=== PATIENT | female | born 1945 | race Hispanic/Latino ===

== ENCOUNTER 2018-05-06 08:08 | Inpatient (IN) | payer MEDICARE ==
[2018-05-06 08:55] LABS: Basophils # (Auto) 0.1 K/mm3 (0.0-0.1); Basophils % (Auto) 0.6 % (0.0-1.8); Eosinophils % (Auto) 0.4 % (0.0-4.3); Hematocrit 40.6 % (30.3-42.9); Hemoglobin 13.7 gm/dl (10.1-14.3); Lymphocytes % (Auto) 21.5 % (13.4-35.0); Mean Corpuscular HGB Conc 34 % (30-34); Mean Corpuscular Volume 92 fl (79-97); Monocytes # (Auto) 0.6 K/mm3 (0.0-0.8); Monocytes % (Auto) 6.1 % (0.0-7.3); Platelet Count 290 K/mm3 (140-440); Red Blood Count 4.42 M/mm3 (3.65-5.03); Red Cell Distribution Width 16.3 % (13.2-15.2)
--- NOTE | 2018-05-06 09:14 | XRay Report ---
AP CHEST: HISTORY: Shortness of breath No comparison. There is poor visualization of the left hemidiaphragm suggesting left basilar atelectasis or small left pleural effusion. The lungs are clear otherwise. Normal heart size and pulmonary vessels. The bony structures are grossly intact. Degenerative changes are noted at both shoulders. IMPRESSION: Left basilar atelectasis versus small left pleural effusion.
[2018-05-06 09:24] LABS: BUN/Creatinine Ratio 26; Blood Urea Nitrogen 18 mg/dL (7-17); Calcium 9.4 mg/dL (8.4-10.2); Hemolysis Index 19
[2018-05-06] MEDS ORDERED: ATROVENT IH ONE (10:40)
[2018-05-06] MEDS ORDERED: PROVENTIL IH ONE (10:40)
--- NOTE | 2018-05-06 11:19 | Emergency Department Report ---
ED Shortness of Breath HPI - General Chief Complaint: Dyspnea/Respdistress Stated Complaint: WEAKNESS/WHEEZING Time Seen by Provider: 05/06/18 10:15 Source: patient Mode of arrival: Stretcher Limitations: Physical Limitation - History of Present Illness Initial Comments: 72-year-old female with history of hypertension, hypothyroidism presents with shortness of breath 5 days. Patient states she is mostly immobile at home. She gets around somewhat in a wheelchair. The patient states that is becoming increasingly harder to do. Patient states she sleeps in her recliner with her legs elevated. Patient states she has been off of her diuretic, Synthroid, blood pressure medication for a few months. Patient reports increased swelling in bilateral lower extremities over the last 2 months. Today, pt called EMS for chest pain, wheezing, shortness of breath. MD Complaint: shortness of breath -: days(s) (5) Severity: moderate Consistency: intermittent Improves With: rest Worsens With: exertion, movement Associated Symptoms: chest pain, lower extremity pain - Related Data Home Oxygen Therapy: No Home Medications Medication Instructions Recorded Confirmed Last Taken Lisinopril [Zestril TAB] 20 mg PO QDAY 12/05/12 05/06/18 01/08/13 05:00 PARoxetine [Paxil] 10 mg PO DAILY 12/05/12 05/06/18 01/07/13 21:00 Chlorthalidone [Thalitone] 25 mg PO QDAY 05/06/18 05/06/18 Unknown Levothyroxine Sodium [Synthroid] 200 mcg PO QDAY 05/06/18 05/06/18 Unknown Allergies Allergy/AdvReac Type Severity Reaction Status Date / Time adhesive Allergy Rash Verified 01/08/13 06:27 benzene [Benzene] Allergy Rash Verified 01/08/13 06:27 iodine Allergy Rash Verified 01/08/13 06:27 Penicillins Allergy Unknown Verified 01/08/13 06:27 Muoktnn-Fhk-Zqo Reductase Allergy Unknown Verified 01/08/13 06:27 Inhibitor pentazocine lactate AdvReac Severe Unknown Verified 01/08/13 06:27 [From Talwin] celecoxib [From Celebrex] AdvReac Unknown Verified 01/08/13 06:27 rofecoxib [From Vioxx] AdvReac Unknown Verified 01/08/13 06:27 ED Review of Systems ROS: Stated complaint: WEAKNESS/WHEEZING Other details as noted in HPI Comment: All other systems reviewed and negative Constitutional: denies: chills, fever Respiratory: shortness of breath, wheezing Cardiovascular: chest pain Musculoskeletal: other (reports lower extremity swelling and pain) ED Past Medical Hx - Past Medical History Hx Hypertension: Yes Hx GERD: Yes Hx Arthritis: Yes (RIGHT KNEE) Hx Asthma: Yes (in cold weather) - Surgical History Hx Breast Surgery: Yes (BILATERAL BREAST BIOPSY) - Social History Smoking Status: Never Smoker Substance Use Type: None - Medications Home Medications: Home Medications Medication Instructions Recorded Confirmed Last Taken Type Lisinopril [Zestril TAB] 20 mg PO QDAY 12/05/12 05/06/18 01/08/13 05:00 History PARoxetine [Paxil] 10 mg PO DAILY 12/05/12 05/06/18 01/07/13 21:00 History Chlorthalidone [Thalitone] 25 mg PO QDAY 05/06/18 05/06/18 Unknown History Levothyroxine Sodium [Synthroid] 200 mcg PO QDAY 05/06/18 05/06/18 Unknown History ED Physical Exam - General Limitations: Physical Limitation General appearance: alert, in no apparent distress, obese - Head Head exam: Present: atraumatic, normocephalic - Eye Eye exam: Present: normal appearance - ENT ENT exam: Present: mucous membranes moist - Neck Neck exam: Present: normal inspection - Respiratory Respiratory exam: Present: wheezes - Cardiovascular Cardiovascular Exam: Present: tachycardia, irregular rhythm - GI/Abdominal GI/Abdominal exam: Present: soft. Absent: distended, tenderness - Extremities Exam Extremities exam: Present: other (2+ edema bilateral lower extremities) - Neurological Exam Neurological exam: Present: alert, oriented X3 - Psychiatric Psychiatric exam: Present: normal affect, normal mood ED Course Vital Signs 05/06/18 05/06/18 05/06/18 08:22 08:48 09:00 Temperature 97.9 F Pulse Rate 120 H 100 H 114 H Pulse Rate [ Bilateral] Respiratory 13 25 H Rate Respiratory Rate [Bilateral ] Blood Pressure 144/90 121/79 O2 Sat by Pulse 99 100 98 Oximetry 05/06/18 05/06/18 05/06/18 09:16 09:29 09:30 Temperature Pulse Rate 100 H 92 H Pulse Rate [ Bilateral] Respiratory 20 18 Rate Respiratory Rate [Bilateral ] Blood Pressure 111/81 111/81 O2 Sat by Pulse 99 98 100 Oximetry 05/06/18 05/06/18 05/06/18 09:45 10:00 10:15 Temperature Pulse Rate 105 H 103 H 89 Pulse Rate [ Bilateral] Respiratory 23 24 25 H Rate Respiratory Rate [Bilateral ] Blood Pressure 138/67 135/73 147/81 O2 Sat by Pulse 99 99 99 Oximetry 05/06/18 05/06/18 05/06/18 10:30 11:00 11:09 Temperature Pulse Rate 92 H 103 H Pulse Rate [ 95 H Bilateral] Respiratory 18 17 Rate Respiratory 25 H Rate [Bilateral ] Blood Pressure 130/76 140/80 O2 Sat by Pulse 100 98 Oximetry 05/06/18 05/06/18 05/06/18 11:16 11:30 11:46 Temperature Pulse Rate 97 H 111 H 108 H Pulse Rate [ Bilateral] Respiratory 19 26 H 25 H Rate Respiratory Rate [Bilateral ] Blood Pressure 166/85 183/90 158/94 O2 Sat by Pulse 99 97 100 Oximetry 05/06/18 05/06/18 05/06/18 12:00 12:15 12:30 Temperature Pulse Rate 109 H 100 H 100 H Pulse Rate [ Bilateral] Respiratory 30 H 24 26 H Rate Respiratory Rate [Bilateral ] Blood Pressure 160/96 163/88 152/95 O2 Sat by Pulse 99 98 99 Oximetry ED Medical Decision Making - Lab Data Result diagrams: 05/06/18 08:37 05/06/18 08:43 - EKG Data -: EKG Interpreted by [place] EKG shows normal: axis, QRS complexes, ST-T waves Rate: tachycardia (rate = 101) - EKG Data Interpretation: other (atrial fibrillation) - Radiology Data Radiology results: report reviewed, image reviewed - Medical Decision Making 72-year-old female with increasing shortness of breath over the last 5 days. The patient with wheezing on exam, pleural effusion on chest x-ray. Patient with severe swelling in bilateral lower extremities, however, D-dimer was negative. EKG shows a sharp fibrillation, rate controlled. Patient denies history of A. fib in the past. Appears to be new onset. Troponin negative. Patient admiited to hospitalist, Dr Lopez. - Differential Diagnosis pneumonia, PE, ACS Critical care attestation.: If time is entered above; I have spent that time in minutes in the direct care of this critically ill patient, excluding procedure time. ED Disposition Clinical Impression: New onset atrial fibrillation, Pleural effusion Disposition: OP ADMIT IP TO THIS HOSP Is pt being admited?: Yes Condition: Stable
--- NOTE | 2018-05-06 12:12 | History and Physical Report ---
History of Present Illness Chief complaint: Im weak, I cant breathe History of present illness: 72 YO Female with HTN, GERD, Hypothyroidism, OA, MO, Asthma presents to ED for evaluation. Pt states that she has experienced shortness of breath over the past 2 months with worsening symptoms over the past 5 days. Pt acknowledges decreased exercise tolerance, leg edema, Orthopnea/PND, and inability to independently conduct activities of daily living. Pt acknowledges medication noncompliance over the past 1 week as well ad noncompliance with low sodium diet. EMS notified, and upon arrival the patient was found to be in respiratory distress. Pt transported to [facility] for further care and evaluation. Pt seen and evaluated in ED and found to have findings consistent with CHF, Obesity Hypoventilation Syndrome. Pt admitted to telemetry and initiated on CHF protocol. Cardiology team consulted in ED. Past History Past Medical History: GERD, hypertension, other (Obesity) Past Surgical History: Other (Bilateral Breast) Social history: . denies: smoking, alcohol abuse, prescription drug abuse Family history: hypertension Medications and Allergies Allergies Allergy/AdvReac Type Severity Reaction Status Date / Time adhesive Allergy Rash Verified 01/08/13 06:27 benzene [Benzene] Allergy Rash Verified 01/08/13 06:27 iodine Allergy Rash Verified 01/08/13 06:27 Penicillins Allergy Unknown Verified 01/08/13 06:27 Zqhpuem-[id number]-Dxm Reductase Allergy Unknown Verified 01/08/13 06:27 Inhibitor pentazocine lactate AdvReac Severe Unknown Verified 01/08/13 06:27 [From Talwin] celecoxib [From Celebrex] AdvReac Unknown Verified 01/08/13 06:27 rofecoxib [From Vioxx] AdvReac Unknown Verified 01/08/13 06:27 Home Medications Medication Instructions Recorded Confirmed Last Taken Type Lisinopril [Zestril TAB] 20 mg PO QDAY 12/05/12 05/06/18 01/08/13 05:00 History PARoxetine [Paxil] 10 mg PO DAILY 12/05/12 05/06/18 01/07/13 21:00 History Chlorthalidone [Thalitone] 25 mg PO QDAY 05/06/18 05/06/18 Unknown History Levothyroxine Sodium [Synthroid] 200 mcg PO QDAY 05/06/18 05/06/18 Unknown History Review of Systems Constitutional: no weight loss, no weight gain, no fever, no chills Ears, nose, mouth and throat: no ear pain, no ear discharge, no tinnitis, no decreased hearing, no nose pain, no nasal congestion Cardiovascular: orthopnea, shortness of breath, dyspnea on exertion, paroxysmal nocturnal dyspnea, high blood pressure, leg edema, decreased exercise tolerance, no palpitations, no rapid/irregular heart beat, no edema, no syncope Respiratory: no cough, no cough with sputum, no excessive sputum, no hemoptysis Gastrointestinal: no abdominal pain, no nausea, no vomiting, no diarrhea Genitourinary Female: no pelvic pain, no flank pain, no menorrhagia, no dysuria Rectal: no pain, no incontinence, no bleeding Musculoskeletal: no neck stiffness, no neck pain, no shooting arm pain, no arm numbness/tingling, no low back pain, no shooting leg pain Integumentary: no rash, no pruritis, no redness, no sores, no wounds Neurological: no transient paralysis, no paralysis, no weakness, no parathesias, no numbness, no tingling, no seizures Psychiatric: no anxiety, no memory loss, no change in sleep habits, no sleep disturbances, no insomnia, no hypersomnia Endocrine: no cold intolerance, no heat intolerance, no polyphagia, no excessive thirst, no polydipsia, no polyuria Hematologic/Lymphatic: no easy bruising, no easy bleeding, no lymphadenopathy, no lymphedema Allergic/Immunologic: no urticaria, no allergic rhinitis, no wheezing, no persistent infections, no anaphylaxis, no angioedema Exam - Constitutional Vitals: Temp Pulse Resp BP Pulse Ox 97.9 F 95 H 25 H 130/76 100 05/06/18 08:22 05/06/18 11:09 05/06/18 11:09 05/06/18 10:30 05/06/18 10:30 General appearance: Present: mild distress, obese - EENT Eyes: Present: PERRL ENT: hearing intact, clear oral mucosa - Neck Neck: Present: supple, normal ROM - Respiratory Respiratory effort: labored Respiratory: bilateral: diminished, rhonchi - Cardiovascular Heart Sounds: Present: S1 & S2. Absent: rub, click - Extremities Extremities: pulses symmetrical Extremity abnormal: edema Peripheral Pulses: within normal limits - Abdominal General gastrointestinal: Present: soft, non-tender, non-distended, normal bowel sounds Female genitourinary: Present: normal - Musculoskeletal Musculoskeletal: generalized weakness - Psychiatric Psychiatric: appropriate mood/affect, intact judgment & insight - Neurologic Neurologic: CNII-XII intact, moves all extremities, no gait normal Results - Labs CBC & Chem 7: 05/06/18 08:37 05/06/18 08:43 Labs: Abnormal lab results 05/06/18 05/06/18 Range/Units 08:37 08:43 RDW 16.3 H (13.2-15.2) % Seg Neutrophils % 71.4 H (40.0-70.0) % BUN 18 H (7-17) mg/dL Glucose 150 H (65-100) mg/dL Assessment and Plan - Patient Problems (1) CHF (congestive heart failure) Current Visit: Yes Status: Suspected Qualifiers: Heart failure type: combined systolic and diastolic Plan to address problem: Admit to Telemetry, Cardiology consulted in ED, CHF protocol initiated: Strict I/O, daily weight, monitor uop q shift, Echo, BNP, D dimer, chest x ray, (2) Obesity hypoventilation syndrome Current Visit: Yes Status: Acute Plan to address problem: Supplemental oxygen, Nebulizer therapy, NIPPV as clinically indicated, pulse oximetry, (3) Debility Current Visit: Yes Status: Acute Plan to address problem: PT consulted, Case management consulted for D/C planning/SNF Placement with possible Rehab placement. (4) DVT prophylaxis Current Visit: Yes Status: Acute Plan to address problem: SCD to BLE while in bed.
[2018-05-06] MEDS ORDERED: ZOFRAN IV PRN (12:15)
[2018-05-06] MEDS ORDERED: PROVENTIL IH PRN (12:15)
[2018-05-06] MEDS ORDERED: TYLENOL PO PRN (12:15)
[2018-05-06] MEDS: PEPCID PO SCH (21:13)
[2018-05-06] MEDS: SODIUM CHLORIDE FLUSH SYRINGE 10 ML IV SCH (21:13)
[2018-05-07 05:55] LABS: Basophils # (Auto) 0.1 K/mm3 (0.0-0.1); Basophils % (Auto) 0.5 % (0.0-1.8); Eosinophils # (Auto) 0.1 K/mm3 (0.0-0.4); Eosinophils % (Auto) 1.1 % (0.0-4.3); Hematocrit 40.2 % (30.3-42.9); Hemoglobin 13.1 gm/dl (10.1-14.3); Lymphocytes # (Auto) 1.8 K/mm3 (1.2-5.4); Lymphocytes % (Auto) 18.1 % (13.4-35.0); Mean Corpuscular HGB Conc 33 % (30-34); Mean Corpuscular Volume 92 fl (79-97); Monocytes # (Auto) 0.7 K/mm3 (0.0-0.8); Monocytes % (Auto) 7.3 % (0.0-7.3); Platelet Count 275 K/mm3 (140-440); Red Blood Count 4.35 M/mm3 (3.65-5.03); Red Cell Distribution Width 16.5 % (13.2-15.2)
[2018-05-07] MEDS: SYNTHROID PO SCH (05:56)
[2018-05-07 06:22] LABS: BUN/Creatinine Ratio 19; Blood Urea Nitrogen 13 mg/dL (7-17); Hemolysis Index 6
--- NOTE | 2018-05-07 09:23 | Progress Note ---
Assessment and Plan Assessment and plan: 72-year-old woman with past medical history of hypertension GERD, hypothyroidism, asthma presents with progressive shortness of breath over the period of 2 months, her symptoms had worsened over the last 5 days prior to admission. She acknowledged decreased exercise tolerance, pedal edema, orthopnea, inability to perform activities of daily living. She also acknowledged nonadherence 1 week to low-sodium diet -She has been off all her medications which include Synthroid, diuretics and blood pressure meds for a few months. -She has been sleeping in a recliner because of severe orthopnea, she's been getting around her house with a wheelchair Diagnoses CHF Obesity hypoventilation syndrome Asthma Debilitating Hospital course/plan IV diuresis, cardiology consult on at goal Supplemental oxygen as needed Optimize medications PT consult check tfts DVT prophylaxis chemical History Interval history: Review of systems Constitutional: No fevers, no malaise, no joint pains CVS: No chest pain, c/o orthopnea, dyspnea on exertion and pedal edema GI: No abdominal pain, no diarrhea, no vomiting, no constipation Respiratory: No shortness of breath, no wheezing, no coughing Hospitalist Physical - Physical exam Narrative exam: General.: Appears well, no distress, nontoxic HEENT: Moist mucous membranes, extraocular muscles intact, no lymphadenopathy Neck: supple Cardiac: S1-S2 heard Lungs: clear to auscultation bilaterally Abdomen: soft , nontender, nondistended, bowel sounds positive Extremities: pedal edema Skin: no rash or lesions Neurologic: no gross focal deficits Psych: calm, and cooperative - Constitutional Vitals: Temp Pulse Resp BP Pulse Ox 97.0 F L 95 H 18 142/87 99 05/07/18 04:30 05/07/18 04:30 05/07/18 04:30 05/07/18 04:30 05/07/18 04:30 General appearance: Present: mild distress, obese Results - Labs CBC & Chem 7: 05/07/18 04:24 05/07/18 04:24 Labs: Laboratory Last Values WBC 9.8 K/mm3 (4.5-11.0) 05/07/18 04:24 RBC 4.35 M/mm3 (3.65-5.03) 05/07/18 04:24 Hgb 13.1 gm/dl (10.1-14.3) 05/07/18 04:24 Hct 40.2 % (30.3-42.9) 05/07/18 04:24 MCV 92 fl (79-97) 05/07/18 04:24 MCH 30 pg (28-32) 05/07/18 04:24 MCHC 33 % (30-34) 05/07/18 04:24 RDW 16.5 % (13.2-15.2) H 05/07/18 04:24 Plt Count 275 K/mm3 (140-440) 05/07/18 04:24 Lymph % (Auto) 18.1 % (13.4-35.0) 05/07/18 04:24 [place] % (Auto) 7.3 % (0.0-7.3) 05/07/18 04:24 Eos % (Auto) 1.1 % (0.0-4.3) 05/07/18 04:24 Baso % (Auto) 0.5 % (0.0-1.8) 05/07/18 04:24 Lymph # 1.8 K/mm3 (1.2-5.4) 05/07/18 04:24 [place] # 0.7 K/mm3 (0.0-0.8) 05/07/18 04:24 Eos # 0.1 K/mm3 (0.0-0.4) 05/07/18 04:24 Baso # 0.1 K/mm3 (0.0-0.1) 05/07/18 04:24 Seg Neutrophils % 73.0 % (40.0-70.0) H 05/07/18 04:24 Seg Neutrophils # 7.2 K/mm3 (1.8-7.7) 05/07/18 04:24 D-Dimer 215.38 ng/mlDDU (0-234) 05/06/18 10:47 Sodium 142 mmol/L (137-145) 05/07/18 04:24 Potassium 3.8 mmol/L (3.6-5.0) 05/07/18 04:24 Chloride 103.8 mmol/L (98-107) 05/07/18 04:24 Carbon Dioxide 25 mmol/L (22-30) 05/07/18 04:24 Anion Gap 17 mmol/L 05/07/18 04:24 BUN 13 mg/dL (7-17) 05/07/18 04:24 Creatinine 0.7 mg/dL (0.7-1.2) 05/07/18 04:24 Estimated GFR > 60 ml/min 05/07/18 04:24 BUN/Creatinine Ratio 19 % 05/07/18 04:24 Glucose 127 mg/dL (65-100) H 05/07/18 04:24 Calcium 9.0 mg/dL (8.4-10.2) 05/07/18 04:24 Troponin T < 0.010 ng/mL (0.00-0.029) 05/06/18 08:43 NT-Pro-B Natriuret Pep 853.8 pg/mL (0-900) 05/06/18 08:42
[2018-05-07] MEDS: THALITONE PO SCH (10:00)
[2018-05-07] MEDS: LASIX IV SCH ×2 (10:00→18:27)
[2018-05-07] MEDS ORDERED: LEVOTHYROXINE SODIUM 200 MCG PO SCH (10:00)
[2018-05-07] MEDS: SODIUM CHLORIDE FLUSH SYRINGE 10 ML IV SCH ×2 (10:01→22:08)
[2018-05-07] MEDS: ZESTRIL PO SCH (10:01)
[2018-05-07] MEDS: PEPCID PO SCH ×2 (10:01→22:07)
--- NOTE | 2018-05-07 10:07 | Consultation ---
Addendum entered and electronically signed by LEANA SCHULTZ MD 05/07/18 11:00: Patient seen and examined by me Severe deconditioning Chronic bilateral lymphedema Shortness of breath No pulmonary edema on CXR Normal NT-proBNP Morbid obesity with likely underlying restrictive lung disease, sleep apnea and obesity hypoventilation syndrome New onset atrial fibrillation Moderate aortic stenosis LVEF 50-55% Inferoseptal wall hypokinesis Systemic Hypertension Pre-diabetes Recommendations: Lexiscan to evaluate for ischemic heart disease Bilateral venous doppler to rule out DVT Systemic anticoagulation for new onset atrial fibrillation PT/OT Original Note: History of Present Illness Consult date: 05/07/18 Consult reason: congestive heart failure History of present illness: Patient is a 72 year old woman who is morbidly obese and mostly immobile at home due to knee pain. She was brought to this hospital with complaints of difficulty breath and chest pain described as pressure. Patient gives a history of diabetes managed by diet, hypertension and hypothyroidism but has been off her medications for several weeks. Patient also has chronic bilateral lower extremity lymphedema. She denies prior cardiac history and she has not had any recent cardiac workup. A chest x-ray reports left basilar atelectasis versus small left pleural effusion. No evidence of heart failure. An EKG shows atrial fibrillation, rate 101. Patient denies a history of arrhythmias and is not on oral anticoagulation therapy. This finding of atrial fibrillation is of uncertain duration. An echocardiogram, done today, reveals a normal left ventricular ejection fraction, 50-55%. Past History Past Medical History: other (Obesity) Social history: . denies: smoking, alcohol abuse, prescription drug abuse Family history: hypertension Medications and Allergies Allergies Allergy/AdvReac Type Severity Reaction Status Date / Time adhesive Allergy Rash Verified 01/08/13 06:27 benzene [Benzene] Allergy Rash Verified 01/08/13 06:27 iodine Allergy Rash Verified 01/08/13 06:27 Penicillins Allergy Unknown Verified 01/08/13 06:27 Jvuymav-Xhb-Eyn Reductase Allergy Unknown Verified 01/08/13 06:27 Inhibitor pentazocine lactate AdvReac Severe Unknown Verified 01/08/13 06:27 [From Talwin] celecoxib [From Celebrex] AdvReac Unknown Verified 01/08/13 06:27 rofecoxib [From Vioxx] AdvReac Unknown Verified 01/08/13 06:27 Home Medications Medication Instructions Recorded Confirmed Last Taken Type Lisinopril [Zestril TAB] 20 mg PO QDAY 12/05/12 05/06/18 01/08/13 05:00 History PARoxetine [Paxil] 10 mg PO DAILY 12/05/12 05/06/18 01/07/13 21:00 History Chlorthalidone [Thalitone] 25 mg PO QDAY 05/06/18 05/06/18 Unknown History Levothyroxine Sodium [Synthroid] 200 mcg PO QDAY 05/06/18 05/06/18 Unknown History Active Meds: Active Medications Acetaminophen (Tylenol) 650 mg PO Q4H PRN PRN Reason: Pain MILD(1-3)/Fever >100.5/BELL Albuterol (Proventil) 2.5 mg IH Q4HRT PRN PRN Reason: Shortness Of Breath Chlorthalidone (Thalitone) 25 mg PO QDAY [facility] Last Admin: 05/07/18 10:00 Dose: 25 mg Documented by: Enoxaparin Sodium (Lovenox) 40 mg SUB-Q QDAY@2200 [facility] Famotidine (Pepcid) 10 mg PO BID [facility] Last Admin: 05/07/18 10:01 Dose: 10 mg Documented by: Furosemide (Lasix) 40 mg IV 0600,1800 [facility] Last Admin: 05/07/18 10:00 Dose: 40 mg Documented by: Levothyroxine Sodium (Synthroid) 200 mcg PO DAILY@0600 [facility] Last Admin: 05/07/18 05:56 Dose: 200 mcg Documented by: Lisinopril (Zestril) 20 mg PO QDAY [facility] Last Admin: 05/07/18 10:01 Dose: 20 mg Documented by: Morphine Sulfate (Morphine) 2 mg IV Q4H PRN PRN Reason: Pain, Moderate (4-6) Ondansetron HCl (Zofran) 4 mg IV Q8H PRN PRN Reason: Nausea And Vomiting Paroxetine HCl (Paxil) 10 mg PO DAILY [facility] Sodium Chloride (Sodium Chloride Flush Syringe 10 Ml) 10 ml IV BID [facility] Last Admin: 05/07/18 10:01 Dose: 10 ml Documented by: Sodium Chloride (Sodium Chloride Flush Syringe 10 Ml) 10 ml IV PRN PRN PRN Reason: LINE FLUSH Physical Examination Vital Signs Temp Pulse BP Pulse Ox 97.9 F 120 H 144/90 99 05/06/18 08:22 05/06/18 08:22 05/06/18 08:22 05/06/18 08:22 General appearance: no acute distress, obese HEENT: Positive: PERRL Cardiac: Positive: irregularly irregular Lungs: Positive: Decreased Breath Sounds Extremities: Present: edema (chronic lymphedema) Results 05/07/18 04:24 05/07/18 04:24 CBC 05/07/18 Range/Units 04:24 WBC 9.8 (4.5-11.0) K/mm3 RBC 4.35 (3.65-5.03) M/mm3 Hgb 13.1 (10.1-14.3) gm/dl Hct 40.2 (30.3-42.9) % Plt Count 275 (140-440) K/mm3 Lymph # 1.8 (1.2-5.4) K/mm3 [place] # 0.7 (0.0-0.8) K/mm3 Eos # 0.1 (0.0-0.4) K/mm3 Baso # 0.1 (0.0-0.1) K/mm3 Comprehensive Metabolic Panel 05/07/18 Range/Units 04:24 Sodium 142 (137-145) mmol/L Potassium 3.8 (3.6-5.0) mmol/L Chloride 103.8 (98-107) mmol/L Carbon Dioxide 25 (22-30) mmol/L BUN 13 (7-17) mg/dL Creatinine 0.7 (0.7-1.2) mg/dL Glucose 127 H (65-100) mg/dL Calcium 9.0 (8.4-10.2) mg/dL Assessment and Plan Chest pain Shortness of breath Atrial fibrillation, uncertain duration Hypertension Diabetes managed by diet Hypothyroidism Noncompliant with medications Chronic bilateral lower extremity lymphedema An echocardiogram, done today, reveals a normal left ventricular ejection fraction, 50-55%.
[2018-05-07] MEDS: PAXIL PO SCH (11:19)
[2018-05-07] MEDS ORDERED: AFLURIA QUAD 2018-2019 SYRINGE IM ONE (12:00)
[2018-05-07] MEDS: ULTRAM PO PRN ×2 (14:42→19:41)
[2018-05-07] MEDS: LOVENOX SUB-Q SCH ×2 (14:42→22:06)
[2018-05-07] MEDS: MAG-OX PO SCH (14:42)
[2018-05-07] MEDS: NYSTOP TP SCH ×2 (14:46→22:07)
--- NOTE | 2018-05-07 18:01 | Vascular Lab Report ---
FINAL REPORT PROCEDURE: US DOPPLER VENOUS LOWER EXTREMITY BILATERAL TECHNIQUE: Duplex Doppler ultrasound of the BILATERAL common and superficial femoral, popliteal, pos terior tibial and proximal deep femoral and greater saphenous veins was attempted. Alberto scale imaging with and without compression, spectral waveform analysis with and without augmentation, and color fl ow Doppler were employed. CPT 44767 HISTORY: ble pain ,Swelling of limb 729.81 and edema 782.3 COMPARISON: No prior studies are available for comparison. FINDINGS: RIGHT LOWER EXTREMITY: Deep Venous Thrombus: None. Superficial Venous Thrombus: None. Venous valvular incompetence: None. Soft tissue abnormality: None. Other: None. LEFT LOWER EXTREMITY: Deep Venous Thrombus: None. Superficial Venous Thrombus: None. Venous valvular incompetence: None. Soft tissue abnormality: None. Other: None. IMPRESSION: No evidence of deep venous thrombosis
[2018-05-07] MEDS ORDERED: LOVENOX SUB-Q SCH ×2 (22:00)
[2018-05-07] MEDS: MORPHINE IV PRN (23:50)
[2018-05-08] MEDS: ULTRAM PO PRN (03:05)
[2018-05-08] MEDS: LASIX IV SCH ×3 (05:46→21:45)
[2018-05-08] MEDS: SYNTHROID PO SCH (05:46)
[2018-05-08] MEDS: MORPHINE IV PRN (05:46)
--- NOTE | 2018-05-08 09:19 | Progress Note ---
Addendum entered and electronically signed by BRENT ROQUE MD 05/08/18 11:44: Patient exceeded the girth limit for the myocardial perfusion imaging equipment, therefore not a candidate for stress testing, we'll manage conservatively. Addendum entered and electronically signed by BRENT ROQUE MD 05/08/18 11:43: Conservative cardiac management, medical therapy for atrial fibrillation rate control and oral anticoagulation. Original Note: Assessment and Plan Chest pain Shortness of breath No pulmonary edema on CXR Normal NT-proBNP Morbid obesity with likely underlying restrictive lung disease, sleep apnea and obesity hypoventilation syndrome Atrial fibrillation, uncertain duration TSH 76 Hypertension Diabetes managed by diet per pt Hypothyroidism Noncompliant with medications Chronic bilateral lower extremity lymphedema no DVT by venous duplex Severe deconditioning An echocardiogram, done this admission, reveals moderate aortic stenosis, inferoseptal wall hypokinesis, normal left ventricular ejection fraction, 50- 55%. Subjective Date of service: 05/08/18 Interval history: Patient denies chest pain. Planned nuclear stress test was cancelled due to patient's abdominal girth. Rapid Afib on telemetry. Labs shows a TSH of 76 and a magnesium of 1.3. Objective Vital Signs Temp Pulse Pulse Resp Resp Resp BP 05/08/18 08:02 05/08/18 08:00 98.2 F 118 H 20 124/78 05/08/18 05:46 18 05/08/18 04:06 98.2 F 112 H 18 126/76 05/08/18 04:05 18 05/08/18 03:05 18 05/08/18 00:20 18 05/07/18 23:50 18 05/07/18 23:49 97.9 F 104 H 17 131/75 05/07/18 22:55 62 18 05/07/18 22:54 18 18 05/07/18 20:41 18 05/07/18 19:58 129 H 05/07/18 19:24 98.3 F 62 17 121/90 05/07/18 17:42 98.1 F 101 H 18 141/76 05/07/18 14:00 113 H 05/07/18 11:57 97.5 F L 113 H 18 153/95 Pulse Ox 05/08/18 08:02 99 05/08/18 08:00 99 05/08/18 05:46 05/08/18 04:06 96 05/08/18 04:05 05/08/18 03:05 05/08/18 00:20 05/07/18 23:50 05/07/18 23:49 99 05/07/18 22:55 97 05/07/18 22:54 05/07/18 20:41 05/07/18 19:58 05/07/18 19:24 97 05/07/18 17:42 97 05/07/18 14:00 05/07/18 11:57 98 - Physical Examination General: No Apparent Distress HEENT: Positive: PERRL Cardiac: Positive: irregularly irregular Lungs: Positive: Decreased Breath Sounds Extremities: Present: edema (chronic lymphedema)
[2018-05-08] MEDS: PAXIL PO SCH (10:00)
[2018-05-08] MEDS: THALITONE PO SCH (10:00)
[2018-05-08] MEDS ORDERED: LOPRESSOR PO SCH (10:00)
[2018-05-08] MEDS: LOVENOX SUB-Q SCH ×2 (10:00→21:46)
[2018-05-08] MEDS: MAG-OX PO SCH (10:02)
[2018-05-08] MEDS: PEPCID PO SCH ×2 (10:02→21:45)
[2018-05-08] MEDS: ZESTRIL PO SCH (10:02)
[2018-05-08] MEDS: SODIUM CHLORIDE FLUSH SYRINGE 10 ML IV SCH ×2 (10:03→21:46)
[2018-05-08] MEDS: NYSTOP TP SCH ×2 (10:10→21:45)
--- NOTE | 2018-05-08 13:29 | Progress Note ---
Assessment and Plan Assessment and plan: 72-year-old woman with past medical history of hypertension GERD, hypothyroidism, asthma presents with progressive shortness of breath over the period of 2 months, her symptoms had worsened over the last 5 days prior to admission. She acknowledged decreased exercise tolerance, pedal edema, orthopnea, inability to perform activities of daily living. She also acknowledged nonadherence 1 week to low-sodium diet -She has been off all her medications which include Synthroid, diuretics and blood pressure meds for a few months. -She has been sleeping in a recliner because of severe orthopnea, she's been getting around her house with a wheelchair Diagnoses Acute on chronic diastolic CHF Obesity hypoventilation syndrome Asthma Debility Hospital course/plan IV diuresis, cardiology consult appreciated, echo shows preserved EF, unable to do stress test as she exceeds the weight limits -Continue medical management Supplemental oxygen as needed Optimize medications PT consult TFTs show remarkable hypothyroidism which is expected, she admitted that she has not been on Synthroid for a few months DVT prophylaxis chemical History Interval history: skin c/o rash under pannus Review of systems Constitutional: No fevers, no malaise, no joint pains CVS: No chest pain, c/o orthopnea, dyspnea on exertion and pedal edema GI: No abdominal pain, no diarrhea, no vomiting, no constipation Respiratory: No shortness of breath, no wheezing, no coughing Hospitalist Physical - Physical exam Narrative exam: General.: Appears well, no distress, nontoxic HEENT: Moist mucous membranes, extraocular muscles intact, no lymphadenopathy Neck: supple Cardiac: S1-S2 heard Lungs: clear to auscultation bilaterally Abdomen: soft , nontender, nondistended, bowel sounds positive Extremities: pedal edema Skin: rash under pannus, erythematous rash on lower extremities Neurologic: no gross focal deficits Psych: calm, and cooperative - Constitutional Vitals: Temp Pulse Resp BP Pulse Ox 98.2 F 118 H 20 124/78 99 05/08/18 08:00 05/08/18 08:00 05/08/18 08:00 05/08/18 10:06 05/08/18 08:02 General appearance: Present: mild distress, obese Results - Labs CBC & Chem 7: 05/07/18 04:24 05/07/18 04:24 Labs: Laboratory Last Values WBC 9.8 K/mm3 (4.5-11.0) 05/07/18 04:24 RBC 4.35 M/mm3 (3.65-5.03) 05/07/18 04:24 Hgb 13.1 gm/dl (10.1-14.3) 05/07/18 04:24 Hct 40.2 % (30.3-42.9) 05/07/18 04:24 MCV 92 fl (79-97) 05/07/18 04:24 MCH 30 pg (28-32) 05/07/18 04:24 MCHC 33 % (30-34) 05/07/18 04:24 RDW 16.5 % (13.2-15.2) H 05/07/18 04:24 Plt Count 275 K/mm3 (140-440) 05/07/18 04:24 Lymph % (Auto) 18.1 % (13.4-35.0) 05/07/18 04:24 [place] % (Auto) 7.3 % (0.0-7.3) 05/07/18 04:24 Eos % (Auto) 1.1 % (0.0-4.3) 05/07/18 04:24 Baso % (Auto) 0.5 % (0.0-1.8) 05/07/18 04:24 Lymph # 1.8 K/mm3 (1.2-5.4) 05/07/18 04:24 [place] # 0.7 K/mm3 (0.0-0.8) 05/07/18 04:24 Eos # 0.1 K/mm3 (0.0-0.4) 05/07/18 04:24 Baso # 0.1 K/mm3 (0.0-0.1) 05/07/18 04:24 Seg Neutrophils % 73.0 % (40.0-70.0) H 05/07/18 04:24 Seg Neutrophils # 7.2 K/mm3 (1.8-7.7) 05/07/18 04:24 D-Dimer 215.38 ng/mlDDU (0-234) 05/06/18 10:47 Sodium 142 mmol/L (137-145) 05/07/18 04:24 Potassium 3.8 mmol/L (3.6-5.0) 05/07/18 04:24 Chloride 103.8 mmol/L (98-107) 05/07/18 04:24 Carbon Dioxide 25 mmol/L (22-30) 05/07/18 04:24 Anion Gap 17 mmol/L 05/07/18 04:24 BUN 13 mg/dL (7-17) 05/07/18 04:24 Creatinine 0.7 mg/dL (0.7-1.2) 05/07/18 04:24 Estimated GFR > 60 ml/min 05/07/18 04:24 BUN/Creatinine Ratio 19 % 05/07/18 04:24 Glucose 127 mg/dL (65-100) H 05/07/18 04:24 Calcium 9.0 mg/dL (8.4-10.2) 05/07/18 04:24 Magnesium 1.30 mg/dL (1.7-2.3) L 05/07/18 10:26 Troponin T < 0.010 ng/mL (0.00-0.029) 05/06/18 08:43 NT-Pro-B Natriuret Pep 853.8 pg/mL (0-900) 05/06/18 08:42 TSH 76.510 mlU/mL (0.270-4.200) H 05/07/18 10:26 Free T4 0.53 ng/dL (0.76-1.46) L 05/07/18 10:26 Thyroxine (T4) 3.1 ug/dL (4.0-12.0) L 05/07/18 10:26 Nutrition/Malnutrition Assess - Dietary Evaluation Nutrition/Malnutrition Findings: Nutrition Notes Start: 05/07/18 16:06 Freq: Status: Active Protocol: Document 05/07/18 16:06 (Rec: 05/07/18 16:19 [id number]) Nutrition Notes 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 Armin 16 points. 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 Pt stated that her appetite is poor now and that she ate half of her breakfast today and nothing yesterday. Declined regular Ensure d/t similarity to milk. Admitted to diarrhea . Stated UBW was 300 lbs 1 year ago. Percent of energy/protein needs met: 20%/29% Burn Absent Trauma Absent #1 Nutrition Diagnosis Inadequate oral intake Etiology decreased appetite As Evidenced by Signs and Symptoms pt statement that she ate half of her breakfast today and nothing yesterday Is patient on ventilator? No Is Patient Ambulatory and/or Out of Bed No REE-([facility]-confined to bed) 2262.468 Kcal/Kg value to use for calculation 12 Approximate Energy Requirements Using 1745 kcal/Kg Calculation Used for Recommendations Kcal/kg Additional Notes Protein Needs: 95-114g (1-1.2g /kg,95kg adjBW) Fluid Needs: 1 ml/kcal Nutrition Intervention Change Diet Order: Continue current Add Supplement/Snack (indicate name/kcal Ensure Clear Mixed Ruval[place] 1 /protein ) daily Provides kCal: 240 Provides Protein (gm) 8 Goal #1 Meet at least 75% of calorie and protein needs via PO and ONS intakes Anticipated Discharge Needs: Cardiac diet Follow-Up By: 05/09/18 Additional Comments Follow for PO and ONS intakes
[2018-05-08] MEDS: CARDIZEM PO SCH (17:57)
[2018-05-09] MEDS: CARDIZEM PO SCH ×4 (01:07→18:36)
[2018-05-09] MEDS: SYNTHROID PO SCH (06:53)
[2018-05-09] MEDS: LASIX IV SCH ×3 (06:53→21:55)
[2018-05-09] MEDS: SODIUM CHLORIDE FLUSH SYRINGE 10 ML IV PRN (06:55)
--- NOTE | 2018-05-09 09:08 | Progress Note ---
Assessment and Plan Assessment and plan: 72-year-old woman with past medical history of hypertension GERD, hypothyroidism, asthma presents with progressive shortness of breath over the period of 2 months, her symptoms had worsened over the last 5 days prior to admission. She acknowledged decreased exercise tolerance, pedal edema, orthopnea, inability to perform activities of daily living. She also acknowledged nonadherence 1 week to low-sodium diet -She has been off all her medications which include Synthroid, diuretics and blood pressure meds for a few months. -She has been sleeping in a recliner because of severe orthopnea, she's been getting around her house with a wheelchair Diagnoses Acute on chronic diastolic CHF Obesity hypoventilation syndrome Asthma Debility acute hypoxic respiratory failure Hospital course/plan IV diuresis, cardiology consult appreciated, echo shows preserved EF, unable to do stress test as she exceeds the weight limits -Continue medical management Supplemental oxygen as needed Optimize medications cont PT TFTs show remarkable hypothyroidism which is expected, she admitted that she has not been on Synthroid for a few months DVT prophylaxis chemical Dispo to home hospice on saturday, it has already been set up DNR/DNI History Interval history: skin c/o rash under pannus Review of systems Constitutional: No fevers, no malaise, no joint pains CVS: No chest pain, c/o orthopnea, dyspnea on exertion and pedal edema GI: No abdominal pain, no diarrhea, no vomiting, no constipation Respiratory: No shortness of breath, no wheezing, no coughing Hospitalist Physical - Physical exam Narrative exam: General.: obese HEENT: Moist mucous membranes, extraocular muscles intact, no lymphadenopathy Neck: supple Cardiac: S1-S2 heard Lungs: clear to auscultation bilaterally Abdomen: soft , nontender, nondistended, bowel sounds positive Extremities: pedal edema Skin: rash under pannus, erythematous rash on lower extremities Neurologic: no gross focal deficits Psych: calm, and cooperative - Constitutional Vitals: Temp Pulse Resp BP Pulse Ox 98.8 F 99 H 16 137/73 98 05/09/18 07:36 05/09/18 07:36 05/09/18 08:30 05/09/18 07:36 05/09/18 07:36 General appearance: Present: mild distress, obese Results - Labs CBC & Chem 7: 05/07/18 04:24 05/07/18 04:24 Labs: Laboratory Last Values WBC 9.8 K/mm3 (4.5-11.0) 05/07/18 04:24 RBC 4.35 M/mm3 (3.65-5.03) 05/07/18 04:24 Hgb 13.1 gm/dl (10.1-14.3) 05/07/18 04:24 Hct 40.2 % (30.3-42.9) 05/07/18 04:24 MCV 92 fl (79-97) 05/07/18 04:24 MCH 30 pg (28-32) 05/07/18 04:24 MCHC 33 % (30-34) 05/07/18 04:24 RDW 16.5 % (13.2-15.2) H 05/07/18 04:24 Plt Count 275 K/mm3 (140-440) 05/07/18 04:24 Lymph % (Auto) 18.1 % (13.4-35.0) 05/07/18 04:24 [place] % (Auto) 7.3 % (0.0-7.3) 05/07/18 04:24 Eos % (Auto) 1.1 % (0.0-4.3) 05/07/18 04:24 Baso % (Auto) 0.5 % (0.0-1.8) 05/07/18 04:24 Lymph # 1.8 K/mm3 (1.2-5.4) 05/07/18 04:24 [place] # 0.7 K/mm3 (0.0-0.8) 05/07/18 04:24 Eos # 0.1 K/mm3 (0.0-0.4) 05/07/18 04:24 Baso # 0.1 K/mm3 (0.0-0.1) 05/07/18 04:24 Seg Neutrophils % 73.0 % (40.0-70.0) H 05/07/18 04:24 Seg Neutrophils # 7.2 K/mm3 (1.8-7.7) 05/07/18 04:24 D-Dimer 215.38 ng/mlDDU (0-234) 05/06/18 10:47 Sodium 142 mmol/L (137-145) 05/07/18 04:24 Potassium 3.8 mmol/L (3.6-5.0) 05/07/18 04:24 Chloride 103.8 mmol/L (98-107) 05/07/18 04:24 Carbon Dioxide 25 mmol/L (22-30) 05/07/18 04:24 Anion Gap 17 mmol/L 05/07/18 04:24 BUN 13 mg/dL (7-17) 05/07/18 04:24 Creatinine 0.7 mg/dL (0.7-1.2) 05/07/18 04:24 Estimated GFR > 60 ml/min 05/07/18 04:24 BUN/Creatinine Ratio 19 % 05/07/18 04:24 Glucose 127 mg/dL (65-100) H 05/07/18 04:24 Calcium 9.0 mg/dL (8.4-10.2) 05/07/18 04:24 Magnesium 1.20 mg/dL (1.7-2.3) L 05/09/18 00:26 Troponin T < 0.010 ng/mL (0.00-0.029) 05/06/18 08:43 NT-Pro-B Natriuret Pep 853.8 pg/mL (0-900) 05/06/18 08:42 TSH 76.510 mlU/mL (0.270-4.200) H 05/07/18 10:26 Free T4 0.53 ng/dL (0.76-1.46) L 05/07/18 10:26 Thyroxine (T4) 3.1 ug/dL (4.0-12.0) L 05/07/18 10:26 Nutrition/Malnutrition Assess - Dietary Evaluation Nutrition/Malnutrition Findings: Nutrition Notes Start: 05/07/18 16:06 Freq: Status: Active Protocol: Document 05/07/18 16:06 RM (Rec: 05/07/18 16:19 [id number]) Nutrition Notes 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 Armin 16 points. 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 Pt stated that her appetite is poor now and that she ate half of her breakfast today and nothing yesterday. Declined regular Ensure d/t similarity to milk. Admitted to diarrhea . Stated UBW was 300 lbs 1 year ago. Percent of energy/protein needs met: 20%/29% Burn Absent Trauma Absent #1 Nutrition Diagnosis Inadequate oral intake Etiology decreased appetite As Evidenced by Signs and Symptoms pt statement that she ate half of her breakfast today and nothing yesterday Is patient on ventilator? No Is Patient Ambulatory and/or Out of Bed No [facility] 2262.468 Kcal/Kg value to use for calculation 12 Approximate Energy Requirements Using 1745 kcal/Kg Calculation Used for Recommendations Kcal/kg Additional Notes Protein Needs: 95-114g (1-1.2g /kg,95kg adjBW) Fluid Needs: 1 ml/kcal Nutrition Intervention Change Diet Order: Continue current Add Supplement/Snack (indicate name/kcal Ensure Clear Mixed [place] 1 /protein ) daily Provides kCal: 240 Provides Protein (gm) 8 Goal #1 Meet at least 75% of calorie and protein needs via PO and ONS intakes Anticipated Discharge Needs: Cardiac diet Follow-Up By: 05/09/18 Additional Comments Follow for PO and ONS intakes
[2018-05-09] MEDS: LOVENOX SUB-Q SCH (09:38)
[2018-05-09] MEDS: PEPCID PO SCH ×2 (09:39→21:54)
[2018-05-09] MEDS: ZESTRIL PO SCH (09:39)
[2018-05-09] MEDS: MAG-OX PO SCH (09:39)
[2018-05-09] MEDS: PAXIL PO SCH (09:39)
[2018-05-09] MEDS: THALITONE PO SCH (09:40)
[2018-05-09] MEDS: SODIUM CHLORIDE FLUSH SYRINGE 10 ML IV SCH ×2 (09:40→21:55)
--- NOTE | 2018-05-09 13:01 | Progress Note ---
Assessment and Plan Chest pain Patient exceeds the size limits for nuclear SPECT - a stress test could not be performed Negative troponin Shortness of breath No pulmonary edema on CXR Normal NT-proBNP Morbid obesity with likely underlying restrictive lung disease, sleep apnea and obesity hypoventilation syndrome Atrial fibrillation, uncertain duration Profound hypothyroidism TSH 76 Hypertension Diabetes managed by diet per pt Noncompliant with medications Chronic bilateral lower extremity lymphedema no DVT by venous duplex Severe deconditioning An echocardiogram, done this admission, reveals moderate aortic stenosis, inferoseptal wall hypokinesis, normal left ventricular ejection fraction, 50- 55%. Recommendations: Change SC lovenox to eliquis 5 mg po bid Continue diltiazem for rate control Diuresis with lasix and chlorthalidone Replace magnesium Outpatient follow-up Subjective Date of service: 05/09/18 Principal diagnosis: Shortness of breath Interval history: Patient continues to feel weak Tele is showing rate controlled atrial fibrillation with occasional episodes of RVR Objective Vital Signs Temp Pulse Resp BP Pulse Ox 05/09/18 11:57 98.7 F 93 H 20 134/68 99 05/09/18 09:39 99 H 137/73 05/09/18 08:30 16 05/09/18 07:36 98.8 F 99 H 20 137/73 98 05/09/18 06:54 105 H 139/71 05/09/18 05:10 98.0 F 96 H 17 139/71 96 05/09/18 01:07 106 H 137/70 05/08/18 23:40 98.4 F 98 H 18 137/70 97 05/08/18 20:06 95 05/08/18 19:40 98.2 F 87 17 102/70 94 05/08/18 19:15 95 H 05/08/18 17:57 102/72 05/08/18 16:30 98.3 F 106 H 18 102/72 94 05/08/18 13:17 98.1 F 104 H 20 137/83 95 - Physical Examination General: No Apparent Distress HEENT: Positive: PERRL Cardiac: Positive: irregularly irregular Lungs: Positive: Decreased Breath Sounds Extremities: Present: edema (chronic lymphedema)
[2018-05-09] MEDS ORDERED: MAGNESIUM SULFATE 2GM/50ML 2 GM/50 ML BAG IV STA (13:08)
[2018-05-09] MEDS: NYSTOP TP SCH ×2 (13:14→21:58)
[2018-05-09] MEDS: ELIQUIS PO SCH (21:54)
[2018-05-10] MEDS: CARDIZEM PO SCH ×4 (00:32→18:11)
[2018-05-10 04:41] LABS: Basophils % (Auto) 0.1 % (0.0-1.8); Hematocrit 39.1 % (30.3-42.9); Hemoglobin 13.3 gm/dl (10.1-14.3); Lymphocytes # (Auto) 1.3 K/mm3 (1.2-5.4); Lymphocytes % (Auto) 8.1 % (13.4-35.0); Mean Corpuscular HGB Conc 34 % (30-34); Mean Corpuscular Volume 91 fl (79-97); Monocytes # (Auto) 1.7 K/mm3 (0.0-0.8); Monocytes % (Auto) 10.6 % (0.0-7.3); Platelet Count 278 K/mm3 (140-440); Red Blood Count 4.32 M/mm3 (3.65-5.03); Red Cell Distribution Width 16.1 % (13.2-15.2)
[2018-05-10 05:02] LABS: Calcium 9.5 mg/dL (8.4-10.2)
[2018-05-10] MEDS: SYNTHROID PO SCH (06:10)
[2018-05-10] MEDS: LASIX IV SCH ×3 (06:11→21:21)
[2018-05-10] MEDS: SODIUM CHLORIDE FLUSH SYRINGE 10 ML IV PRN (06:14)
[2018-05-10] MEDS ORDERED: MAGNESIUM SULFATE 1 GM in WATER FOR INJ (PF) 23 ML IV ONE (08:05)
[2018-05-10] MEDS ORDERED: K-DUR PO NR (08:05)
[2018-05-10] MEDS: PEPCID PO SCH ×2 (09:03→21:19)
[2018-05-10] MEDS: ELIQUIS PO SCH ×2 (09:03→21:19)
[2018-05-10] MEDS: SLOW-MAG PO SCH (09:03)
[2018-05-10] MEDS: THALITONE PO SCH ×2 (09:03→16:00)
[2018-05-10] MEDS: PAXIL PO SCH (09:03)
[2018-05-10] MEDS: SODIUM CHLORIDE FLUSH SYRINGE 10 ML IV SCH ×2 (09:04→21:19)
[2018-05-10] MEDS: NYSTOP TP SCH ×2 (09:04→22:00)
[2018-05-10 09:34] LABS: Bacteria,Urine 3+ /HPF (Negative); Bilirubin,Urine NEG (Negative); Blood,Urine SM (Negative); Color,Urine Yellow (Yellow); Hyaline Casts,Urine 1 /LPF; Mucus,Urine FEW /HPF; Protein,Urine <15 mg/dL mg/dL (Negative); Urobilinogen,Urine < 2.0 mg/dL (<2.0)
--- NOTE | 2018-05-10 10:54 | Progress Note ---
Assessment and Plan Chest pain Patient exceeds the size limits for nuclear SPECT - a stress test could not be performed Negative troponin Shortness of breath No pulmonary edema on CXR Normal NT-proBNP Morbid obesity with likely underlying restrictive lung disease, sleep apnea and obesity hypoventilation syndrome Atrial fibrillation, uncertain duration Profound hypothyroidism TSH 76 Hypertension Diabetes managed by diet per pt Noncompliant with medications Chronic bilateral lower extremity lymphedema no DVT by venous duplex Severe deconditioning An echocardiogram, done this admission, reveals moderate aortic stenosis, inferoseptal wall hypokinesis, normal left ventricular ejection fraction, 50- 55%. Recommendations: Continue eliquis Continue diltiazem for rate control Diuresis with lasix and chlorthalidone Replace magnesium Outpatient follow-up Subjective Date of service: 05/10/18 Principal diagnosis: Shortness of breath Interval history: No cardiac complaints. Objective Vital Signs Temp Pulse Resp BP Pulse Ox 05/10/18 07:58 98.1 F 80 18 114/56 98 05/10/18 06:11 90 122/61 05/10/18 04:37 98.1 F 89 20 122/61 95 05/10/18 00:32 88 110/62 05/09/18 23:43 97.5 F L 83 22 110/62 96 05/09/18 22:02 95 05/09/18 20:43 98.2 F 101 H 20 102/52 95 05/09/18 20:05 93 H 05/09/18 18:36 98 H 107/53 05/09/18 17:57 96 H 05/09/18 15:51 98.4 F 92 H 20 107/58 94 05/09/18 11:57 98.7 F 93 H 20 134/68 99 - Physical Examination General: No Apparent Distress HEENT: Positive: PERRL Neck: Positive: neck supple Cardiac: Positive: irregularly irregular Lungs: Positive: Other (distant breath sounds) Abdomen: Positive: Other (obese) Extremities: Present: edema (chronic lymphedema) - Labs and Meds CBC 05/10/18 Range/Units 04:15 WBC 16.5 H (4.5-11.0) K/mm3 RBC 4.32 (3.65-5.03) M/mm3 Hgb 13.3 (10.1-14.3) gm/dl Hct 39.1 (30.3-42.9) % Plt Count 278 (140-440) K/mm3 Lymph # 1.3 (1.2-5.4) K/mm3 [place] # 1.7 H (0.0-0.8) K/mm3 Eos # 0.0 (0.0-0.4) K/mm3 Baso # 0.0 (0.0-0.1) K/mm3 Comprehensive Metabolic Panel 05/10/18 Range/Units 04:15 Sodium 135 L (137-145) mmol/L Potassium 3.0 L D (3.6-5.0) mmol/L Chloride 87.3 L (98-107) mmol/L Carbon Dioxide 34 H D (22-30) mmol/L BUN 16 (7-17) mg/dL Creatinine 1.0 (0.7-1.2) mg/dL Glucose 152 H (65-100) mg/dL Calcium 9.5 (8.4-10.2) mg/dL
--- NOTE | 2018-05-10 11:08 | XRay Report ---
FINAL REPORT EXAM: XR CHEST 1V AP HISTORY: f/u of CHF and r/o infiltrate TECHNIQUE: Frontal chest radiograph. PRIORS: None. FINDINGS: The cardiac silhouette is enlarged. There is moderate bilateral pulmonary edema. Elevation of the ri ght hemidiaphragm likely represents eventration. No focal consolidation. No pleural effusion. No pneumothorax. No acute osseous abnormality. IMPRESSION: Cardiomegaly with moderate bilateral pulmonary edema.
[2018-05-10] MEDS: ZESTRIL PO SCH (12:29)
[2018-05-10] MEDS: ULTRAM PO PRN (12:33)
--- NOTE | 2018-05-10 14:35 | Progress Note ---
Subjective Date of service: 05/10/18 Principal diagnosis: Shortness of breath Interval history: A/P Chest pain Cardiology note reviewed Patient exceeds the size limits for nuclear SPECT - a stress test could not be performed Negative troponin Shortness of breath No pulmonary edema on CXR Normal NT-proBNP Morbid obesity with likely underlying restrictive lung disease, sleep apnea and obesity hypoventilation syndrome Atrial fibrillation: Continue Eliquis hypothyroidism TSH 76 Continue Synthroid 200 g daily Hypertension: Fair Continue present medications but will decrease the chlorthalidone to 12.5 mg due to persistent hypokalemia Hypokalemia: Supplements ordered, monitor electrolytes Hypomagnesemia: Additional IV magnesium supplements ordered. Recheck magnesium level in a.m. Chronic bilateral lower extremity lymphedema, continue Lasix no DVT by venous duplex Leukocytosis: WBC count trending up?? Unclear etiology.? If it continues to trend up , suspect cellulitis of the lower extremities and consider starting her On antibiotics Deconditioning echocardiogram, reveals moderate aortic stenosis, inferoseptal wall hypokinesis, normal left ventricular ejection fraction, 50-55%. Morbid obesity Due to excess calories Patient apparently opted for home hospice Subjective: Patient is awake and alert appears chronically ill-looking she denies any chest pain denies the fever or chills she denies nausea or abdominal pain Has chronic shortness of breath Lab results reviewed Objective: HEENT: Normocephalic pupils are round reactive to light throat is clear Neck: Supple no significant lymphadenopathy no JVD Lungs: Diminished breath sounds bilaterally, no rhonchi or wheezing Heart: S1-S2 regular rate and rhythm Abdomen: Soft obese nontender Extremities: 3+ bilateral leg and pedal edema with erythema in the distal part of the legs with a small opening on the left leg covered with dressing Objective - Constitutional Vitals: Vital Signs - 12hr 05/10/18 05/10/18 05/10/18 04:37 06:11 07:58 Temperature 98.1 F 98.1 F Pulse Rate 89 90 80 Respiratory 20 18 Rate Respiratory Rate [Right Knee] Blood Pressure 122/61 122/61 114/56 O2 Sat by Pulse 95 98 Oximetry 05/10/18 05/10/18 05/10/18 10:00 12:00 12:29 Temperature Pulse Rate 89 84 84 Respiratory Rate Respiratory 18 Rate [Right Knee] Blood Pressure 133/67 133/67 O2 Sat by Pulse 98 97 Oximetry 05/10/18 12:30 Temperature Pulse Rate 84 Respiratory Rate Respiratory Rate [Right Knee] Blood Pressure 133/67 O2 Sat by Pulse Oximetry - Labs CBC & Chem 7: 05/10/18 04:15 05/10/18 04:15 Labs: Abnormal lab results 05/10/18 05/10/18 05/10/18 Range/Units 04:15 04:15 Unknown WBC 16.5 H (4.5-11.0) K/mm3 RDW 16.1 H (13.2-15.2) % Lymph % (Auto) 8.1 L (13.4-35.0) % [place] % (Auto) 10.6 H (0.0-7.3) % [place] # 1.7 H (0.0-0.8) K/mm3 Seg Neutrophils % 81.2 H (40.0-70.0) % Seg Neutrophils # 13.4 H (1.8-7.7) K/mm3 Sodium 135 L (137-145) mmol/L Potassium 3.0 L D (3.6-5.0) mmol/L Chloride 87.3 L (98-107) mmol/L Carbon Dioxide 34 H D (22-30) mmol/L Glucose 152 H (65-100) mg/dL Phosphorus 2.40 L (2.5-4.5) mg/dL Magnesium 1.60 L (1.7-2.3) mg/dL Urine WBC (Auto) 23.0 H (0.0-6.0) /HPF
[2018-05-10] MEDS: MORPHINE IV PRN (18:11)
[2018-05-11] MEDS: CARDIZEM PO SCH ×3 (00:13→11:31)
[2018-05-11 05:53] LABS: Hematocrit 40.6 % (30.3-42.9); Hemoglobin 13.2 gm/dl (10.1-14.3); Mean Corpuscular HGB Conc 33 % (30-34); Mean Corpuscular Volume 92 fl (79-97); Platelet Count 317 K/mm3 (140-440); Red Blood Count 4.41 M/mm3 (3.65-5.03); Red Cell Distribution Width 16.3 % (13.2-15.2)
[2018-05-11] MEDS: SYNTHROID PO SCH (06:19)
[2018-05-11] MEDS: LASIX IV SCH (06:19)
[2018-05-11] MEDS ORDERED: K-DUR PO ONE (06:38)
[2018-05-11] MEDS: ULTRAM PO PRN (11:29)
[2018-05-11] MEDS: ELIQUIS PO SCH ×2 (11:29→21:31)
[2018-05-11] MEDS: PEPCID PO SCH ×2 (11:30→21:31)
[2018-05-11] MEDS: SLOW-MAG PO SCH (11:32)
[2018-05-11] MEDS: THALITONE PO SCH (11:32)
[2018-05-11] MEDS: ZESTRIL PO SCH (11:32)
[2018-05-11] MEDS: PAXIL PO SCH (11:33)
[2018-05-11] MEDS: NYSTOP TP SCH ×2 (11:34→22:10)
[2018-05-11] MEDS: KCL 10MEQ/100ML 10 MEQ/100 ML BAG IV SCH ×3 (11:34→17:33)
[2018-05-11] MEDS: SODIUM CHLORIDE FLUSH SYRINGE 10 ML IV SCH ×2 (11:42→21:38)
--- NOTE | 2018-05-11 12:40 | Progress Note ---
Assessment and Plan /Chest pain Cardiology note reviewed, could be from GERD Patient exceeds the size limits for nuclear SPECT - a stress test could not be performed Negative troponin, echocardiogram, reveals moderate aortic stenosis, inferoseptal wall hypokinesis, normal left ventricular ejection fraction, 50- 55%. Plan to manage conservatively, cont PPI /Acute hypoxic respiratory failure No pulmonary edema on CXR Normal NT-proBNP Morbid obesity with likely underlying cause for restrictive lung disease, sleep apnea and obesity hypoventilation syndrome /Atrial fibrillation: Continue Eliquis /Acute on chronic diastolic CHF - cont lasix, cardiology following / hypothyroidism TSH 76, Continue Synthroid 200 g daily /Hypertension: Fair Continue present medications but will decrease the chlorthalidone to 12.5 mg due to persistent hypokalemia /Hypokalemia: Supplements ordered, monitor electrolytes /Hypomagnesemia: Additional IV magnesium supplements ordered. Recheck magnesium level in a.m. /Chronic bilateral lower extremity lymphedema, continue Lasix but will reduce frequency no DVT by venous duplex /Leukocytosis: WBC count trending up?? Unclear etiology.? If it continues to trend up , suspect cellulitis of the lower extremities and consider started her On antibiotics /Deconditioning. will order PT /Morbid obesity, Due to excess calories, nutrition following Patient apparently opted for home hospice, d/c when K level stabilizes Brief History: 72-year-old woman with past medical history of hypertension GERD, hypothyroidism, asthma presents with progressive shortness of breath over the period of 2 months, her symptoms had worsened over the last 5 days prior to admission. She acknowledged decreased exercise tolerance, pedal edema, orthopnea, inability to perform activities of daily living. She also acknowledged nonadherence 1 week to low-sodium diet -She has been off all her medications which include Synthroid, diuretics and blood pressure meds for a few months. -She has been sleeping in a recliner because of severe orthopnea, she's been getting around her house with a wheelchair - she has placed on IV diuresis, cardiology consult appreciated, echo shows preserved EF, unable to do stress test as she exceeds the weight limits - Supplemental oxygen as needed, Optimize medications PHysical exam: General: morbidly obese, mild distress HEENT: Normocephalic pupils are round reactive to light throat is clear Neck: Supple no significant lymphadenopathy no JVD Lungs: Diminished breath sounds bilaterally, no rhonchi or wheezing Heart: S1-S2 regular rate and rhythm Abdomen: Soft obese nontender Extremities: 3+ bilateral leg and pedal edema with erythema in the distal part of the legs with a small opening on the left leg covered with dressing Skin: LE skin discoloration Subjective Date of service: 05/11/18 Principal diagnosis: Shortness of breath Interval history: Patient seen and examined Planned to d/c with hospice but K this am 2.7 denies chest pain, but has ongoing SOB Objective - Constitutional Vitals: Vital Signs - 12hr 05/11/18 05/11/18 05/11/18 04:41 08:45 11:31 Temperature 97.5 F L 98.4 F Pulse Rate 80 85 89 Respiratory 22 18 Rate Blood Pressure 119/58 107/55 O2 Sat by Pulse 90 99 Oximetry 05/11/18 05/11/18 11:32 12:09 Temperature Pulse Rate 69 91 H Respiratory Rate Blood Pressure 107/64 O2 Sat by Pulse 97 Oximetry - Labs CBC & Chem 7: 05/11/18 04:33 05/12/18 04:56 Labs: Abnormal lab results 05/11/18 05/11/18 Range/Units 04:33 04:33 WBC 13.9 H (4.5-11.0) K/mm3 RDW 16.3 H (13.2-15.2) % Sodium 136 L (137-145) mmol/L Potassium 2.7 L* (3.6-5.0) mmol/L Chloride 86.0 L (98-107) mmol/L Carbon Dioxide 38 H (22-30) mmol/L BUN 19 H (7-17) mg/dL Glucose 132 H (65-100) mg/dL
--- NOTE | 2018-05-11 14:00 | Progress Note ---
Assessment and Plan Chest pain Patient exceeds the size limits for nuclear SPECT - a stress test could not be performed Negative troponin Shortness of breath No pulmonary edema on CXR Normal NT-proBNP Morbid obesity with likely underlying restrictive lung disease, sleep apnea and obesity hypoventilation syndrome Atrial fibrillation, uncertain duration Profound hypothyroidism TSH 76 Hypertension Diabetes managed by diet per pt Noncompliant with medications Chronic bilateral lower extremity lymphedema no DVT by venous duplex Severe deconditioning An echocardiogram, done this admission, reveals moderate aortic stenosis, inferoseptal wall hypokinesis, normal left ventricular ejection fraction, 50- 55%. Recommendations: Continue current therapy Pt reports she will be going home with hospice Subjective Date of service: 05/11/18 Principal diagnosis: Shortness of breath Interval history: No cardiac complaints. Objective Vital Signs Temp Pulse Resp Resp BP Pulse Ox 05/11/18 12:09 91 H 107/64 97 05/11/18 11:32 69 05/11/18 11:31 89 05/11/18 10:00 78 05/11/18 08:45 98.4 F 85 18 107/55 99 05/11/18 04:41 97.5 F L 80 22 119/58 90 05/11/18 00:13 82 05/10/18 23:26 97.6 F 88 20 121/61 95 05/10/18 20:08 98.2 F 79 20 117/62 95 05/10/18 19:49 87 05/10/18 19:47 18 05/10/18 18:11 87 130/73 05/10/18 18:05 87 130/73 92 - Physical Examination General: No Apparent Distress HEENT: Positive: PERRL Neck: Positive: neck supple Cardiac: Positive: Reg Rate and Rhythm Lungs: Positive: clear to auscultation Abdomen: Positive: Soft, Active Bowel Sounds, Other (obese) Extremities: Present: edema (chronic lymphedema) - Labs and Meds CBC 05/11/18 Range/Units 04:33 WBC 13.9 H (4.5-11.0) K/mm3 RBC 4.41 (3.65-5.03) M/mm3 Hgb 13.2 (10.1-14.3) gm/dl Hct 40.6 (30.3-42.9) % Plt Count 317 (140-440) K/mm3 Comprehensive Metabolic Panel 02/10/19 Range/Units 04:33 Sodium 136 L (137-145) mmol/L Potassium 2.7 L* (3.6-5.0) mmol/L Chloride 86.0 L (98-107) mmol/L Carbon Dioxide 38 H (22-30) mmol/L BUN 19 H (7-17) mg/dL Creatinine 1.0 (0.7-1.2) mg/dL Glucose 132 H (65-100) mg/dL Calcium 10.0 (8.4-10.2) mg/dL
[2018-05-12] MEDS: CARDIZEM PO SCH ×6 (00:40→23:59)
[2018-05-12] MEDS: SYNTHROID PO SCH (06:01)
[2018-05-12] MEDS: LASIX IV SCH ×2 (06:03→18:32)
[2018-05-12 06:08] LABS: BUN/Creatinine Ratio 26; Blood Urea Nitrogen 18 mg/dL (7-17); Hemolysis Index 28
[2018-05-12] MEDS ORDERED: K-DUR PO NR (08:00)
[2018-05-12] MEDS: KCL 10MEQ/100ML 10 MEQ/100 ML BAG IV SCH ×2 (08:30→14:11)
[2018-05-12] MEDS: THALITONE PO SCH (09:54)
[2018-05-12] MEDS: SLOW-MAG PO SCH (09:55)
[2018-05-12] MEDS: ZESTRIL PO SCH (09:56)
[2018-05-12] MEDS: PEPCID PO SCH ×2 (09:56→22:00)
[2018-05-12] MEDS: ELIQUIS PO SCH ×2 (09:56→22:01)
[2018-05-12] MEDS: PAXIL PO SCH (09:57)
[2018-05-12] MEDS: K-DUR PO SCH ×2 (09:58→22:00)
[2018-05-12] MEDS ORDERED: K-DUR PO SCH (10:00)
[2018-05-12] MEDS: MIRALAX 3350 PO SCH (10:04)
[2018-05-12] MEDS: SODIUM CHLORIDE FLUSH SYRINGE 10 ML IV SCH ×2 (10:04→22:01)
[2018-05-12] MEDS: NYSTOP TP SCH ×2 (10:05→22:32)
[2018-05-12] MEDS: ULTRAM PO PRN (10:14)
[2018-05-12] MEDS: COLACE PO SCH ×2 (10:14→22:00)
[2018-05-12] MEDS ORDERED: MAGNESIUM SULFATE IV ONE (11:39)
[2018-05-12] MEDS ORDERED: MAGNESIUM SULFATE 1 GM in NACL 0.9% 50 ML IV ONE (14:00)
--- NOTE | 2018-05-12 14:12 | Discharge Summary ---
Providers - Providers Date of Admission: 05/06/18 12:15 Date of discharge: 05/12/18 Attending physician: SONIA MONTILLA 05/06/18 12:18 Consult to Physician [CONS] Routine Comment: Consulting Provider: BRENT ROQUE Physician Instructions: Reason For Exam: chf 05/06/18 13:56 Consult to Case Management [CONS] Routine Services Needed at Discharge: Other Notified:: caser in Additional Physician Instructions: Please send out for SNF/Rehab Physical Therapy Evaluation and Treat [CONS] Routine Comment: Reason For Exam: weakness 05/06/18 15:33 Occupational Therapy Evaluate and Treat [CONS] Routine Comment: Reason For Exam: Eval & Treat Physical Therapy Evaluation and Treat [CONS] Routine Comment: Reason For Exam: eval & treat 05/06/18 17:43 Physical Therapy Evaluation and Treat [CONS] Routine Comment: Reason For Exam: weakness, decline in movement 05/06/18 17:44 Consult to Wound/ET Nurse [CONS] Routine Reason For Exam: wound eval 05/12/18 09:17 Physical Therapy Evaluation and Treat [CONS] Routine Comment: Reason For Exam: placement Primary care physician: ELECTRO MECH[employer]ICAL TECHNOLOGIST Hospitalization Condition: Stable Hospital course: /Chest pain Cardiology note reviewed, could be from GERD Patient exceeds the size limits for nuclear SPECT - a stress test could not be performed Negative troponin, echocardiogram, reveals moderate aortic stenosis, inferoseptal wall hypokinesis, normal left ventricular ejection fraction, 50- 55%. Plan to manage conservatively, cont PPI /Acute hypoxic respiratory failure No pulmonary edema on CXR Normal NT-proBNP Morbid obesity with likely underlying cause for restrictive lung disease, sleep apnea and obesity hypoventilation syndrome /Atrial fibrillation: Continue Eliquis /Acute on chronic diastolic CHF - cont lasix, cardiology following / hypothyroidism TSH 76, Continue Synthroid 200 g daily /Hypertension: Fair Continue present medications but will decrease the chlorthalidone to 12.5 mg due to persistent hypokalemia /Hypokalemia: Supplements ordered, monitor electrolytes /Hypomagnesemia: Additional IV magnesium supplements ordered. Recheck magnesium level in a.m. /Chronic bilateral lower extremity lymphedema, continue Lasix but will reduce frequency no DVT by venous duplex /Leukocytosis: WBC count trending up?? Unclear etiology.? If it continues to trend up , suspect cellulitis of the lower extremities and consider started her On antibiotics /Deconditioning. will order PT /Morbid obesity, Due to excess calories, nutrition following Patient apparently opted for home hospice, d/c when K level stabilizes Brief History: 72-year-old woman with past medical history of hypertension GERD, hypothyroidism, asthma presents with progressive shortness of breath over the period of 2 months, her symptoms had worsened over the last 5 days prior to admission. She acknowledged decreased exercise tolerance, pedal edema, orthopnea, inability to perform activities of daily living. She also acknowledged nonadherence 1 week to low-sodium diet -She has been off all her medications which include Synthroid, diuretics and blood pressure meds for a few months. -She has been sleeping in a recliner because of severe orthopnea, she's been getting around her house with a wheelchair - she has placed on IV diuresis, cardiology consult appreciated, echo shows preserved EF, unable to do stress test as she exceeds the weight limits - Supplemental oxygen as needed, Optimize medications PHysical exam: General: morbidly obese, mild distress HEENT: Normocephalic pupils are round reactive to light throat is clear Neck: Supple no significant lymphadenopathy no JVD Lungs: Diminished breath sounds bilaterally, no rhonchi or wheezing Heart: S1-S2 regular rate and rhythm Abdomen: Soft obese nontender Extremities: 3+ bilateral leg and pedal edema with erythema in the distal part of the legs with a small opening on the left leg covered with dressing Skin: LE skin discoloration Disposition: DC-50 TO HOSPICE (HOME) Time spent for discharge: 34 minutes Exam - Constitutional Vitals: Temp Pulse Resp BP Pulse Ox 98.5 F 87 18 126/67 92 05/12/18 08:09 05/12/18 09:56 05/12/18 08:09 05/12/18 08:09 05/12/18 08:09 Plan Activity: advance as tolerated Weight Bearing Status: Non-Weight Bearing Diet: low fat, low salt Follow up with: PRIMARY CARE, [Primary Care Provider] - 3-5 Days Prescriptions: ALBUTEROL NEB's [Proventil 0.083% NEBS] 2.5 mg IH Q4HRT PRN #30 nebu PRN Reason: Shortness Of Breath Apixaban [Eliquis] 5 mg PO Q12HR #60 tablet dilTIAZem [Cardizem] 60 mg PO Q6HR #90 tablet levoFLOXacin [Levaquin] 750 mg PO QDAY #7 tablet Potassium Chloride [K-Dur] 40 meq PO BID #30 tablet
--- NOTE | 2018-05-12 15:22 | Progress Note ---
Assessment and Plan /Chest pain Cardiology note reviewed, could be from GERD Patient exceeds the size limits for nuclear SPECT - a stress test could not be performed Negative troponin, echocardiogram, reveals moderate aortic stenosis, inferoseptal wall hypokinesis, normal left ventricular ejection fraction, 50- 55%. Plan to manage conservatively, cont PPI /Acute hypoxic respiratory failure No pulmonary edema on CXR Normal NT-proBNP Morbid obesity with likely underlying cause for restrictive lung disease, sleep apnea and obesity hypoventilation syndrome /Atrial fibrillation: Continue Eliquis and cardizem /Acute on chronic diastolic CHF - cont lasix, cardiology following / hypothyroidism TSH 76, Continue Synthroid 200 mcg daily /Hypertension: Fair Continue present medications but will decrease the chlorthalidone to 12.5 mg due to persistent hypokalemia /Hypokalemia: Supplements ordered, monitor electrolytes /Hypomagnesemia: supplemented /Chronic bilateral lower extremity lymphedema, continue Lasix but will reduce frequency no DVT by venous duplex /Leukocytosis: suspect cellulitis of the lower extremities and UTI, started her On antibiotics /Deconditioning. PT following /Morbid obesity, Due to excess calories, nutrition following Patient apparently now requesting for SNF, CM notified, d/c when K level stabilizes to SNF w/wo hospice Brief History: 72-year-old woman with past medical history of hypertension GERD, hypothyroidism, asthma presents with progressive shortness of breath over the period of 2 months, her symptoms had worsened over the last 5 days prior to admission. She acknowledged decreased exercise tolerance, pedal edema, orthopnea, inability to perform activities of daily living. She also acknowledged nonadherence 1 week to low-sodium diet -She has been off all her medications which include Synthroid, diuretics and blood pressure meds for a few months. -She has been sleeping in a recliner because of severe orthopnea, she's been getting around her house with a wheelchair - she has placed on IV diuresis, cardiology consult appreciated, echo shows preserved EF, unable to do stress test as she exceeds the weight limits - ON Supplemental oxygen, Optimize medications - replace electrolytes - Planned to d/c patient home with hospice, but now requesting SNF on discharge PHysical exam: General: morbidly obese, mild distress HEENT: Normocephalic pupils are round reactive to light throat is clear Neck: Supple no significant lymphadenopathy no JVD Lungs: Diminished breath sounds bilaterally, no rhonchi or wheezing Heart: S1-S2 regular rate and rhythm Abdomen: Soft obese nontender Extremities: 3+ bilateral leg and pedal edema with erythema in the distal part of the legs with a small opening on the left leg covered with dressing Skin: LE skin discoloration Subjective Date of service: 05/12/18 Principal diagnosis: Shortness of breath Interval history: Patient seen and examined Planned to d/c with hospice but K this am 2.9 denies chest pain, but has ongoing SOB Discussed with daughter today and she refused to take patient home with hospice, stating she won't be able to take care for the pt family and patient now wants SNF - per CM SNF was recommended to them earlier but thery refused then Objective - Constitutional Vitals: Vital Signs - 12hr 05/12/18 05/12/18 05/12/18 04:23 06:02 08:09 Temperature 98.3 F 98.5 F Pulse Rate 81 81 83 Respiratory 17 18 Rate Blood Pressure 140/78 140/78 126/67 O2 Sat by Pulse 95 92 Oximetry 05/12/18 05/12/18 09:56 14:08 Temperature Pulse Rate 87 92 H Respiratory Rate Blood Pressure O2 Sat by Pulse Oximetry - Labs CBC & Chem 7: 05/11/18 04:33 05/12/18 13:45 Labs: Abnormal lab results 05/11/18 05/12/18 05/12/18 Range/Units 17:40 04:56 13:45 Sodium 135 L (137-145) mmol/L Potassium 3.1 L 2.9 L* 3.4 L (3.6-5.0) mmol/L Chloride 85.1 L (98-107) mmol/L Carbon Dioxide 37 H (22-30) mmol/L BUN 18 H (7-17) mg/dL Glucose 129 H (65-100) mg/dL
--- NOTE | 2018-05-12 18:10 | Progress Note ---
Assessment and Plan - Patient Problems (1) Hypoactive thyroid Current Visit: Yes Status: Acute (2) New onset atrial fibrillation Current Visit: Yes Status: Acute (3) Obesity hypoventilation syndrome Current Visit: Yes Status: Acute Subjective Date of service: 05/12/18 Principal diagnosis: Shortness of breath Interval history: SOB-MILD,,,NO OTHER CV C/O Objective Vital Signs Temp Pulse Pulse Resp BP Pulse Ox 05/12/18 16:54 86 118/63 95 05/12/18 14:08 92 H 05/12/18 10:00 88 18 05/12/18 09:56 87 05/12/18 08:09 98.5 F 83 18 126/67 92 05/12/18 06:02 81 140/78 05/12/18 04:23 98.3 F 81 17 140/78 95 05/11/18 23:57 97.3 F L 87 17 123/73 90 05/11/18 22:00 93 H 80 18 05/11/18 21:39 96 05/11/18 19:54 97.4 F L 90 17 144/69 98 - Physical Examination General: No Apparent Distress, Other (OBESE) HEENT: Positive: PERRL Neck: Positive: neck supple Cardiac: Positive: Irregularly Regular Lungs: Positive: Decreased Breath Sounds Abdomen: Positive: Soft, Active Bowel Sounds, Other (obese) Extremities: Present: edema (chronic lymphedema) - Labs and Meds Comprehensive Metabolic Panel 05/11/18 05/12/18 05/12/18 Range/Units 17:40 04:56 13:45 Sodium 135 L (137-145) mmol/L Potassium 3.1 L 2.9 L* 3.4 L (3.6-5.0) mmol/L Chloride 85.1 L (98-107) mmol/L Carbon Dioxide 37 H (22-30) mmol/L BUN 18 H (7-17) mg/dL Creatinine 0.7 (0.7-1.2) mg/dL Glucose 129 H (65-100) mg/dL Calcium 10.0 (8.4-10.2) mg/dL
[2018-05-12] MEDS: LEVAQUIN PO SCH (22:00)
[2018-05-13 05:51] LABS: Basophils % (Auto) 0.2 % (0.0-1.8); Eosinophils % (Auto) 0.4 % (0.0-4.3); Hematocrit 45.5 % (30.3-42.9); Hemoglobin 14.9 gm/dl (10.1-14.3); Lymphocytes # (Auto) 1.1 K/mm3 (1.2-5.4); Lymphocytes % (Auto) 10.6 % (13.4-35.0); Mean Corpuscular HGB Conc 33 % (30-34); Mean Corpuscular Volume 93 fl (79-97); Monocytes # (Auto) 1.4 K/mm3 (0.0-0.8); Monocytes % (Auto) 13.5 % (0.0-7.3); Platelet Count 334 K/mm3 (140-440)
[2018-05-13] MEDS: SYNTHROID PO SCH (06:01)
[2018-05-13] MEDS: CARDIZEM PO SCH ×2 (06:01→15:34)
[2018-05-13] MEDS: LASIX IV SCH ×2 (06:01→06:05)
[2018-05-13 06:15] LABS: BUN/Creatinine Ratio 26; Blood Urea Nitrogen 21 mg/dL (7-17); Calcium 10.2 mg/dL (8.4-10.2); Hemolysis Index 13
[2018-05-13 08:34] VITALS: BP 129/56
[2018-05-13] MEDS: MORPHINE IV PRN (08:38)
--- NOTE | 2018-05-13 10:12 | Progress Note ---
Assessment and Plan Chest pain Patient exceeds the size limits for nuclear SPECT - a stress test could not be performed Negative troponin Shortness of breath No pulmonary edema on CXR Normal NT-proBNP Morbid obesity with likely underlying restrictive lung disease, sleep apnea and obesity hypoventilation syndrome Atrial fibrillation, uncertain duration TSH 76 Hypertension Diabetes managed by diet per pt Hypothyroidism Noncompliant with medications Chronic bilateral lower extremity lymphedema no DVT by venous duplex Severe deconditioning An echocardiogram, done this admission, reveals moderate aortic stenosis, inferoseptal wall hypokinesis, normal left ventricular ejection fraction, 50- 55%. Continue eliquis and diltiazem for management of atrial fibrillation. Conservative cardiac management. We will sign off. Subjective Date of service: 05/13/18 Principal diagnosis: Shortness of breath Interval history: Patient is resting in bed comfortably. Awaits placement. Objective Vital Signs Temp Pulse Resp BP Pulse Ox 05/13/18 08:35 98 05/13/18 07:53 98.8 F 88 20 129/56 99 05/13/18 03:15 97.7 F 69 18 122/61 100 05/12/18 22:00 20 05/12/18 18:55 97.8 F 18 120/71 05/12/18 18:31 92 H 05/12/18 18:28 92 H 05/12/18 16:54 86 118/63 95 05/12/18 14:08 92 H - Physical Examination General: No Apparent Distress, Other (OBESE) HEENT: Positive: PERRL Cardiac: Positive: irregularly irregular Abdomen: Positive: Other Extremities: Present: edema (chronic lymphedema) - Labs and Meds CBC 05/13/18 Range/Units 05:13 WBC 10.7 (4.5-11.0) K/mm3 RBC 4.90 (3.65-5.03) M/mm3 Hgb 14.9 H (10.1-14.3) gm/dl Hct 45.5 H (30.3-42.9) % Plt Count 334 (140-440) K/mm3 Lymph # 1.1 L (1.2-5.4) K/mm3 [place] # 1.4 H (0.0-0.8) K/mm3 Eos # 0.0 (0.0-0.4) K/mm3 Baso # 0.0 (0.0-0.1) K/mm3 Comprehensive Metabolic Panel 05/12/18 05/13/18 Range/Units 13:45 05:13 Sodium 133 L (137-145) mmol/L Potassium 3.4 L 3.6 (3.6-5.0) mmol/L Chloride 84.8 L (98-107) mmol/L Carbon Dioxide 35 H (22-30) mmol/L BUN 21 H (7-17) mg/dL Creatinine 0.8 (0.7-1.2) mg/dL Glucose 130 H (65-100) mg/dL Calcium 10.2 (8.4-10.2) mg/dL
[2018-05-13] MEDS: PEPCID PO SCH (10:40)
[2018-05-13] MEDS: K-DUR PO SCH (10:40)
[2018-05-13] MEDS: LEVAQUIN PO SCH (10:40)
[2018-05-13] MEDS: ELIQUIS PO SCH (10:40)
[2018-05-13] MEDS: COLACE PO SCH (10:40)
[2018-05-13] MEDS: NYSTOP TP SCH (10:41)
[2018-05-13] MEDS: ZESTRIL PO SCH (10:43)
[2018-05-13] MEDS: SODIUM CHLORIDE FLUSH SYRINGE 10 ML IV SCH (10:44)
[2018-05-13] MEDS: SLOW-MAG PO SCH (11:15)
[2018-05-13] MEDS: THALITONE PO SCH (11:15)
[2018-05-13] MEDS: PAXIL PO SCH (11:16)
[2018-05-13] MEDS: MIRALAX 3350 PO SCH (11:16)
--- NOTE | 2018-05-13 13:28 | Discharge Summary ---
Providers - Providers Date of Admission: 05/06/18 12:15 Date of discharge: 05/13/18 Attending physician: HIREN HEATH 05/06/18 13:56 Consult to Case Management [CONS] Routine Services Needed at Discharge: Other Notified:: nurse case manager Additional Physician Instructions: Please send out for SNF/Rehab Physical Therapy Evaluation and Treat [CONS] Routine Comment: Reason For Exam: weakness 05/06/18 15:33 Occupational Therapy Evaluate and Treat [CONS] Routine Comment: Reason For Exam: Eval & Treat Physical Therapy Evaluation and Treat [CONS] Routine Comment: Reason For Exam: eval & treat 05/06/18 17:43 Physical Therapy Evaluation and Treat [CONS] Routine Comment: Reason For Exam: weakness, decline in movement 05/06/18 17:44 Consult to Wound/ET Nurse [CONS] Routine Reason For Exam: wound eval 05/12/18 09:17 Physical Therapy Evaluation and Treat [CONS] Routine Comment: Reason For Exam: placement Primary care physician: [employer] Hospitalization Condition: Stable Hospital course: Patient is a 72 yo woman with history of hypertension GERD, hypothyroidism, asthma and morbid obesity who presented to [facility] ED with progressive shortness of breath over the period of 2 months, her symptoms had worsened over the last 5 days prior to admission. She acknowledged decreased exercise tolerance, pedal edema, orthopnea, inability to perform activities of daily living. She also acknowledged nonadherence 1 week to low-sodium diet, -She has been off all her medications which include Synthroid, diuretics and blood pressure meds for a few months. She has been sleeping in a recliner because of severe orthopnea, she's been getting around her house with a wheelchair. She has placed on IV diuresis, cardiology evaluated patietn, echo shows preserved EF, unable to do stress test as she exceeds the weight limits /Acute hypoxic respiratory failure No pulmonary edema on CXR Normal NT-proBNP Morbid obesity with likely underlying cause for restrictive lung disease, sleep apnea and obesity hypoventilation syndrome /Atrial fibrillation: Continue Eliquis and cardizem /Acute on chronic diastolic CHF - cont lasix, cardiology following /Morbid Obesity, BMI 63.5 /Chest pain Cardiology note reviewed, could be from GERD Patient exceeds the size limits for nuclear SPECT - a stress test could not be performed Negative troponin, echocardiogram, reveals moderate aortic stenosis, inferoseptal wall hypokinesis, normal left ventricular ejection fraction, 50- 55%. Plan to manage conservatively, cont PPI / hypothyroidism TSH 76, Continue Synthroid 200 mcg daily /Hypertension: Fair Continue present medications but will decrease the chlorthalidone to 12.5 mg due to persistent hypokalemia /Hypokalemia: Supplements ordered, monitor electrolytes /Hypomagnesemia: supplemented /Chronic bilateral lower extremity lymphedema, continue Lasix but will reduce frequency no DVT by venous duplex /Leukocytosis: suspect cellulitis of the lower extremities and UTI, started her On antibiotics /Deconditioning. PT following /Morbid obesity, Due to excess calories, nutrition following /Disposition: [facility] with Hospice. d/w daughter Sofiya at bedside Disposition: DC/- SNF W [facility] Time spent for discharge: 32 minutes Core Measure Documentation - Palliative Care Palliative Care/ Comfort Measures: Not Applicable - Core Measures Any of the following diagnoses?: heart failure - VTE Discharge Requirements Deep Vein Thrombosis/Pulmonary Embolism Present on Admission: No Has pt received <5 days of overlap therapy or INR<2.0: No Anticoagulant overlap therapy prescribed at discharge: No Contraindication No Overlap Therapy order at DC: Not Indicated - Heart Failure Discharge Requirements BETY/ARB for LVSD if EF <40%: Yes Beta vic at discharge: No Reason for no beta vic on DC: Hypotension (and Asthma) Exam - Physical Exam Narrative exam: General: morbidly obese, mild distress HEENT: Normocephalic pupils are round reactive to light throat is clear Neck: Supple no significant lymphadenopathy no JVD Lungs: Diminished breath sounds bilaterally, no rhonchi or wheezing Heart: S1-S2 regular rate and rhythm Abdomen: Soft obese nontender Extremities: 3+ bilateral leg and pedal edema with erythema in the distal part of the legs with a small opening on the left leg covered with dressing Skin: LE skin discoloration - Constitutional Vitals: Temp Pulse Resp BP Pulse Ox 98.8 F 88 20 129/56 98 05/13/18 07:53 05/13/18 07:53 05/13/18 07:53 05/13/18 07:53 05/13/18 08:35 Plan Activity: up only with assistance, fall precautions, other (no strenous activities) Diet: low salt Special Instructions: record daily BP diary Follow up with: PRIMARY CARE, [Primary Care Provider] - 3-5 Days Prescriptions: ALBUTEROL NEB's [Proventil 0.083% NEBS] 2.5 mg IH Q4HRT PRN #30 nebu PRN Reason: Shortness Of Breath Apixaban [Eliquis] 5 mg PO Q12HR #60 tablet dilTIAZem [Cardizem] 60 mg PO Q6HR #90 tablet Furosemide [Lasix TAB] 80 mg PO QDAY #30 tablet levoFLOXacin [Levaquin] 750 mg PO QDAY #7 tablet Levothyroxine [Synthroid] 200 mcg PO DAILY@0600 #30 tablet Lisinopril [Zestril TAB] 20 mg PO QDAY #30 tablet Nystatin [Nystop Powder] 1 applic TP BID 7 Days powder PARoxetine [Paxil] 10 mg PO DAILY #30 tablet Polyethylene Glycol 3350 [Miralax 3350] 17 gm PO QDAY 30 Days powd.pack Potassium Chloride [K-Dur] 40 meq PO QDAY #30 tablet
[2018-05-13] MEDS: ULTRAM PO PRN (16:03)
== END 2018-05-13 17:30 | disposition hospice, home (50) | DRG 291 ==
LOC: ED 08:08 → 4A 12:15 → 2B-ACE 05-12 18:55
PROVIDERS: ADMIT Internal Medicine; ATTEND Internal Medicine
DX: I11.0 Hypertensive heart disease with heart failure (principal); J96.01 Acute respiratory failure with hypoxia; E66.2 Morbid (severe) obesity with alveolar hypoventilation; Z68.44 Body mass index [BMI] 60.0-69.9, adult; D68.9 Coagulation defect, unspecified; E87.6 Hypokalemia; E83.42 Hypomagnesemia; K21.9 Gastro-esophageal reflux disease without esophagitis; E03.9 Hypothyroidism, unspecified; J45.909 Unspecified asthma, uncomplicated; D72.829 Elevated white blood cell count, unspecified; I48.91 Unspecified atrial fibrillation; M19.90 Unspecified osteoarthritis, unspecified site; I50.43 Acute on chronic combined systolic (congestive) and diastolic (congestive) heart failure; Z66 Do not resuscitate; I35.0 Nonrheumatic aortic (valve) stenosis; I89.0 Lymphedema, not elsewhere classified; Z91.14 Patient's other noncompliance with medication regimen; Z82.49 Family history of ischemic heart disease and other diseases of the circulatory system; Z88.0 Allergy status to penicillin; Z91.041 Radiographic dye allergy status; Z79.899 Other long term (current) drug therapy
CPT/HCPCS: 36415; 71045; 80048; 81001; 83735; 83880; 84100; 84132; 84436; 84439; 84443; 84484; 85025; 85027; 85379; 90686; 93005; 93010; 93306; 93970; 94640; 94760; G0378; J1650; J1940; J2270; J3475; J3480